=== PATIENT | male | born 1970 | race Caucasian/White ===

== ENCOUNTER → 2017-04-18 | Outpatient (CLI) | payer MEDICAID ==
[~2017-04-18] MED LIST: INSU100V8 SQ
== END | disposition home or self-care (01) ==
LOC: RAD 13:09
PROVIDERS: ATTEND Nurse Practitioner
DX: M25.812 Other specified joint disorders, left shoulder (principal)

== ENCOUNTER → 2018-01-20 | Outpatient (CLI) | payer MEDICAID ==
[~2018-01-20] MED LIST changes: +OMNIPAQUE 350 MG/ML, 100ML BOTTLE ONE
[2018-01-20 09:13] LABS: CREATININE 1.13 mg/dL (0.7-1.3)
== END | disposition home or self-care (01) ==
LOC: RAD 07:47
PROVIDERS: ATTEND Nurse Practitioner
DX: K46.9 Unspecified abdominal hernia without obstruction or gangrene (principal); Z88.0 Allergy status to penicillin
CPT/HCPCS: 36415; 74177; 82565; Q9967